=== PATIENT | female | born 1985 | race American Indian/Alaskan Native ===

== ENCOUNTER 2017-07-09 13:00 | Emergency (ER) | payer OTHER ==
[2017-07-09 13:31] VITALS: BMI 26.6
[2017-07-09 13:36] VITALS: RESP 18; TEMP 99.6; O2SAT 98
[2017-07-09] MEDS ORDERED: Sodium Chloride 0.9% 500 ML IV STA (13:42)
[2017-07-09 14:24] LABS: URINE BILIRUBIN NEGATIVE (NEGATIVE); URINE BLOOD TRACE-INTACT (NEGATIVE); URINE GLUCOSE (UA) 100 mg/dL (NEGATIVE); URINE LEUKOCYTE ESTERASE NEGATIVE Leu/uL (NEGATIVE); URINE NITRATE POSITIVE (NEGATIVE); URINE PROTEIN 100 mg/dL (<30 mg/dL); URINE UROBILINOGEN 0.2 E.U./dL (<1 E.U./dL)
[2017-07-09 14:25] LABS: BASO # 0.02 K/mm3 (0.0-2.0); BASO % 0.6 % (0.0-3.0); EOS % 0.9 % (1.5-5.0); GRAN # 1.54 (1.4-6.5); HEMOGLOBIN 12.2 g/dL (12.0-16.0); LYMPH # 1.2 (1.2-3.4); LYMPH % 34.8 % (22.0-35.0); MEAN CELL VOLUME 88.2 fl (80.0-105.0); MEAN CORPUSCULAR HGB CONC 34.1 g/dl (31.0-37.0); MONO # 0.6 (0.1-0.6); MONO % 18.7 % (1.0-6.0); RBC 4.06 10^6/uL (3.5-6.1); RED CELL DISTRIBUTION WIDTH 14.6 % (11.5-14.5); WHITE BLOOD COUNT 3.4 10^3/ul (4.5-11.0)
[2017-07-09 14:26] LABS: HCG,QUALITATIVE URINE NEGATIVE (NEGATIVE); URINE APPEARANCE SL CLOUDY (CLEAR); URINE COLOR YELLOW (YELLOW)
[2017-07-09 14:30] LABS: ALB/GLOB RATIO 1.1 (1.1-1.8); ALBUMIN 3.7 g/dL (3.0-4.8); ALT/SGPT 32 U/L (7-56); AST/SGOT 41 U/L (14-36); BLOOD UREA NITROGEN 9 mg/dL (7-21); CALCIUM 8.7 mg/dL (8.4-10.5); GFR AFRICAN-AMERICAN > 60; GFR NON-AFRICAN AMERICAN > 60
[2017-07-09 14:34] LABS: URINE BACTERIA TRACE (NEG); URINE RBC 0 - 2 /hpf (0-2); URINE WBC 0 - 2 /hpf (0-6)
[2017-07-09] MEDS ORDERED: cefTRIAXone 2 GM IN NS 2 GM/100 ML BAG IVPB STA (15:36)
[2017-07-09 15:42] VITALS: BP 116/75; PULSE 71
--- NOTE | 2017-07-09 15:42 | ED PDOC ---
Arrival/HPI - General Chief Complaint: Female Genitourinary Time Seen by Provider: 07/09/17 13:42 Historian: Patient - History of Present Illness Narrative History of Present Illness (Text): 07/09/17 31 yo female come in for evaluation of diffuse lower abdominal discomfort, left sided lower back pain gradually developed for past week. Pt admits, since early today developed burning on urination with some change in urine color " I think its blood". Pt took Tylenol early today for fever. Pt sts, was seen at [facility] 2 days ago due to same sx, received Rx: Keflex. Pt took one dose yesterday. Otherwise, pt denies lethargy, chills, headache, dizziness, sore throat, N/V/D, vaginal discharges. Ambulate to Ed for evaluation, not in any apparent distress. Past Medical History - Provider Review Nursing Documentation Reviewed: Yes - Travel History Have you recently traveled outside [place] w/in the past 3 mons?: No - Infectious Disease Hx of Infectious Diseases: None - Tetanus Immunization Tetanus Immunization: Unknown - Genitourinary/Gynecological Other/Comment: PYLONEPHRITIS - Psychiatric Hx Psychophysiologic Disorder: No Hx Substance Use: No - Past Surgical History Past Surgical History: No Previous - Anesthesia Hx Anesthesia: No - Suicidal Assessment Feels Threatened In Home Enviroment: No Family/Social History - Physician Review Nursing Documentation Reviewed: Yes Family/Social History: No Known Family HX Smoking Status: Heavy Smoker > 10 Cigarettes Daily Hx Alcohol Use: No Hx Substance Use: No Allergies/Home Meds Allergies/Adverse Reactions: Allergies No Known Allergies Allergy (Verified 05/05/14 20:55) Review of Systems - Review of Systems Constitutional: Fatigue Eyes: Normal ENT: Normal Respiratory: Normal Cardiovascular: Normal Gastrointestinal: Abdominal Pain. absent: Nausea, Vomiting Genitourinary Female: Dysuria, Frequency, Hematuria. absent: Vaginal Discharge Musculoskeletal: Back Pain Skin: Normal. absent: Rash Neurological: Normal Endocrine: Normal Hemo/Lymphatic: Normal Psychiatric: Normal Physical Exam Vital Signs Reviewed: Yes Vital Signs Temp Pulse Resp BP Pulse Ox 07/09/17 13:35 99.6 F 78 18 118/83 98 Temperature: Afebrile Blood Pressure: Normal Pulse: Regular Respiratory Rate: Normal Appearance: Positive for: Well-Appearing, Non-Toxic, Comfortable Pain Distress: Moderate Mental Status: Positive for: Alert and Oriented X 3 - Systems Exam Head: Present: Normocephalic Conjunctiva: Present: Normal Mouth: Present: Moist Mucous Membranes. No: Drooling Pharnyx: No: ERYTHEMA, TONSILS ENLARGED Neck: Present: Trachea Midline. No: Meningeal Signs Respiratory/Chest: Present: Clear to Auscultation, Good Air Exchange. No: Respiratory Distress, Accessory Muscle Use Cardiovascular: Present: Regular Rate and Rhythm, Normal S1, S2. No: Murmurs Abdomen: Present: Tenderness (mild suprapubic), Normal Bowel Sounds. No: Distention, Peritoneal Signs, Rebound, Guarding Back: Present: Paraspinal Tenderness (mild left lumbar). No: CVA Tenderness Upper Extremity: Present: Normal Inspection Lower Extremity: Present: Normal ROM. No: Edema, CALF TENDERNESS, Tenderness, Deformity Neurological: Present: GCS=15, Speech Normal Skin: Present: Warm, Dry, Normal Color. No: Rashes Psychiatric: Present: Alert, Oriented x 3, Normal Insight, Normal Concentration Medical Decision Making ED Course and Treatment: 07/09/17 Pt was OBS in ED for 3 hours. On re-eval, pt is afebrile, hemodynamicaly stable. Non-toxic. Tolerate Po well in ED. PulseOx 98% RA neck: Supple, (-) meningeal sign. Lungs: CTA B/L, BS equal B/L. CVS: (+)S1S2, reg. Abd: benign, (-) guarding, (-) rebound. Back: (-) CVA tenderness. Blood work review and appears normal. UA (+) nitrates. UCx, GC- pending Pt has clinical findings c/w UTI r/o early pyelonephritis. Pt advised. ref. to f/u with PMD, Nephrologym [facility] In 2-3 days for e-eval. return if any worsening or new changes. Pt understand and agrees with discharges. - Lab Interpretations Lab Results: 07/09/17 14:10 07/09/17 14:10 Lab Results 07/09/17 14:10: Sodium 136, Potassium 3.7, Chloride 107, Carbon Dioxide 22, Anion Gap 11, BUN 9, Creatinine 0.9, Est GFR ( Amer) > 60, Est GFR (Non- Af Amer) > 60, Random Glucose 87, Calcium 8.7, Total Bilirubin 0.4, AST 41 H, ALT 32, Alkaline Phosphatase 46, Total Protein 6.9, Albumin 3.7, Globulin 3.3, Albumin/Globulin Ratio 1.1 07/09/17 14:10: WBC 3.4 L D, RBC 4.06, Hgb 12.2, Hct 35.8 L, MCV 88.2, MCH 30.0 , MCHC 34.1, RDW 14.6 H, Plt Count 222, MPV 10.0, Gran % 45.0 L, Lymph % (Auto) 34.8, [place] % (Auto) 18.7 H, Eos % (Auto) 0.9 L, Baso % (Auto) 0.6, Gran # 1.54, Lymph # 1.2, [place] # 0.6, Eos # 0.0, Baso # 0.02 07/09/17 13:50: Urine Color Yellow, Urine Appearance Sl cloudy, Urine pH 6.0, Ur Specific [place] 1.020, Urine Protein 100 H, Urine Glucose (UA) 100 H, Urine Ketones Negative, Urine Blood Trace-intact H, Urine Nitrate Positive H, Urine Bilirubin Negative, Urine Urobilinogen 0.2, Ur Leukocyte Esterase Negative, Urine RBC 0 - 2, Urine WBC 0 - 2, Ur Epithelial Cells 3 - 4, Urine Bacteria Trace, Urine HCG, Qual Negative - Medication Orders Current Medication Orders: Discontinued Medications Sodium Chloride (Sodium Chloride 0.9%) 500 mls @ 1,000 mls/hr IV .Q30M STA Stop: 07/09/17 14:11 Last Admin: 07/09/17 14:14 Dose: 1,000 mls/hr eMAR Start Stop Document 07/09/17 14:14 EQ (Rec: 07/09/17 14:14 EQ [id number]) Intravenous Solution Start Date 07/09/17 Start Time 14:14 Ketorolac Tromethamine (Toradol) 30 mg IVP STAT STA Stop: 07/09/17 13:43 Last Admin: 07/09/17 14:14 Dose: 30 mg MAR Pain Assessment Document 07/09/17 14:14 EQ (Rec: 07/09/17 14:14 EQ [id number]) Pain Reassessment Is this a pain reassessment? No Sleep Is patient sleeping during reassessment? No Presence of Pain Presence of Pain Yes IVP Administration Document 07/09/17 14:14 EQ (Rec: 07/09/17 14:14 EQ [id number]) Charges for Administration # of IVP Administrations 1 Metoclopramide HCl (Reglan) 10 mg IVP STAT STA Stop: 07/09/17 13:43 Last Admin: 07/09/17 14:14 Dose: 10 mg IVP Administration Document 07/09/17 14:14 EQ (Rec: 07/09/17 14:14 EQ [id number]) Charges for Administration # of IVP Administrations 1 Disposition/Present on Arrival - Present on Arrival Any Indicators Present on Arrival: No History of DVT/PE: No History of Uncontrolled Diabetes: No Urinary Catheter: No History of Decub. Ulcer: No History Surgical Site Infection Following: None - Disposition Have Diagnosis and Disposition been Completed?: Yes Diagnosis: Pyelonephritis Disposition: HOME/ ROUTINE Disposition Time: 15:37 Patient Plan: Discharge Condition: STABLE Discharge Instructions (ExitCare): Acute Pyelonephritis (ED), Urinary Tract Infection in Women (ED) Additional Instructions: CHANGE ANTIBIOTIC TO CEFDINIR ENCOURAGE FLUIDS FOLLOW UP WITH PMD, NEPHROLOGY IN 2-3 DAYS FOR RE-EVALUATION. RETURN TO ED IF ANY WORSENING OR NEW CHANGES. Prescriptions: Cefdinir [Omnicef] 300 mg PO BID #14 cap Cranberry Fruit Extract [Cranberry] 500 mg PO BID #14 capsule Referrals: PCP,NO [Primary Care Provider] - Follow up with primary [facility] [Outside] - Follow up with primary Armaan Smith MD [Staff Provider] - Follow up with primary Forms: [employer] (Portuguese), WORK NOTE
== END 2017-07-09 16:33 | disposition home or self-care (01) ==
LOC: ED 13:00
DX: N12 Tubulo-interstitial nephritis, not specified as acute or chronic (principal); F17.210 Nicotine dependence, cigarettes, uncomplicated
CPT/HCPCS: 80053; 81001; 84703; 85025; 87086; 87491; 87591; 96374; 96375; 99283; J0696; J1885; J2765; J7040